=== PATIENT | male | born 1935 | race Caucasian/White ===

== ENCOUNTER 2019-03-30 16:15 | Observation (INO) ==
[2019-03-30] MEDS ORDERED: Ipratropium/Albuterol Neb 3 ML IH ONE (17:21)
[2019-03-30] MEDS ORDERED: predniSONE 20 MG TABLET PO ONE (17:21)
--- NOTE | 2019-03-30 17:25 | Emergency Department Note ---
Disposition Clinical Impression: COPD exacerbation Disposition: Admitted As Inpatient Condition: Good Referrals: Slade Pike DO [Primary Care Provider] - Forms: ED Satisfaction Letter Time of Disposition: 19:28 General Adult HPI - General Chief complaint: ED Shortness of Breath/Dyspnea Stated complaint: "Pneumonia" Time Seen by Provider: 03/30/19 16:23 Source: patient, family Mode of arrival: ambulatory Limitations: no limitations Nursing Notes Reviewed: Yes Vital Signs Reviewed: Yes - History of Present Illness HPI Narrative: 83-year-old male with significant past medical history of hypertension, diabetes and COPD not on any current oxygen presenting to the emergency department chief complaint of cough and increased sputum production. According to the patient for the past few weeks he has had increasing his cough but today he woke up and started having a yellowish sputum. He states he has some irritation in his th roat and this is exactly how it felt the last time he had pneumonia. Denies any fevers, chest pain or abdominal pain at home. Denies any known sick contacts. Patient tried his nebulizer this morning with some minimal relief. Pain Scale: 0 - Related Data Home Medications Medication Instructions Recorded Confirmed Finasteride [Proscar] 5 mg PO HS 06/27/16 10/11/18 Acetaminophen [Tylenol Arthritis] 650 mg PO BID PRN 04/16/18 10/11/18 Allopurinol [Zyloprim 100 MG] 100 mg PO QPM 04/16/18 10/11/18 Fluticasone Propionate Nasal 1 spr NS DAILY PRN 04/16/18 10/11/18 [Flonase] Metoprolol [Lopressor] 25 mg PO BID 04/16/18 10/11/18 Tamsulosin [Flomax] 0.4 mg PO DAILY 04/16/18 10/11/18 Amlodipine Besylate 10 mg PO DAILY 10/11/18 10/11/18 Sodium Bicarbonate 325 mg PO TID 10/11/18 10/11/18 Allergies Allergy/AdvReac Type Severity Reaction Status Date / Time No Known Allergies Allergy Verified 03/30/19 16:24 All systems ED: reviewed and negative except as stated. Constitutional: Denies: fever Eyes: Reports: as per HPI ENT ED: Reports: as per HPI Cardiovascular: Denies: chest pain Respiratory: Reports: cough, dyspnea Gastrointestinal: Denies: abdominal pain Genitourinary: Reports: as per HPI Musculoskeletal: Reports: as per HPI Integumentary: Reports: as per HPI Neurological: Reports: as per HPI Psychiatric: Reports: as per HPI Endocrine: Reports: as per HPI Hematological/Lymphatic: Reports: as per HPI Allergic/Immunologic: Reports: as per HPI Past Medical History - Past Medical History Attestation: Yes The following information was validated with the patient. Medical history: Reports: arthritis, cancer, COPD, diabetes, GERD, hyperlipidemia, hypertension, kidney stones, renal disease, other Surgical history: Reports: colectomy, other Psychiatric history: Reports: depression - Social History Smoking Status: Former smoker Smokeless Tobacco Status: No Alcohol use: Reports: none Drug use: Reports: none Physical Exam - General Limitations: no limitations General appearance: alert, in no apparent distress - Head Head exam: atraumatic, normocephalic, normal inspection - Eye Eye exam: Absent: scleral icterus - ENT ENT exam: mucous membranes moist - Neck Neck exam: Present: full ROM - Chest Chest inspection: Present: symmetric chest wall rise - Respiratory Respiratory exam: Present: other (Tight breath sounds throughout) - Cardiovascular Cardiovascular exam: Present: regular rate, normal rhythm, normal heart sounds - Abdominal Exam Abdominal exam: Present: soft, Non-Tender. Absent: distention, guarding, rebound - Extremities Exam Extremities exam: Present: full ROM - Neurological Exam Neurological exam: Present: alert, oriented X3 - Psychiatric Psychiatric exam: Present: normal affect, normal mood - Skin Skin exam: Present: warm Course Course Narrative: 83-year-old male presenting with cough and sputum production. In the room patient is alert and oriented 3 and hemodynamically stable. Patient has history of COPD and states this is how he felt the last time he had pneumonia. Physical exam is significant for tight aeration throughout but otherwise is benign. At this time will obtain basic laboratory analysis, two-view chest x- ray and provide him with breathing treatments and steroids. Disposition pending. Patient agrees with this plan. - Reevaluation(s) Reevaluation #1: Patient's laboratory analysis and x-ray benign. Patient ambulated and became hypoxic at 87% on room air. Due to this we will plan to admit the patient for COPD exacerbation. We will provide him with doxycycline. I spoke with the hospitalist on-call who agrees to accept the patient at this time. Patient remains alert and oriented 3 and hemodynamically stable. Vital Signs Temperature 98.2 F 03/30/19 16:20 Pulse Rate 76 03/30/19 16:20 Respiratory Rate 20 03/30/19 16:20 Blood Pressure 167/72 03/30/19 16:20 O2 Sat by Pulse Oximetry 94 03/30/19 16:20 Temperature 98.2 F 03/30/19 16:20 Pulse Rate 69 03/30/19 18:11 Respiratory Rate 16 03/30/19 18:11 Blood Pressure 149/76 03/30/19 18:11 O2 Sat by Pulse Oximetry 97 03/30/19 18:11 Oxygen Delivery Oxygen Delivery Room Air Medical Decision Making - Lab Data Result diagrams: 03/30/19 17:57 03/30/19 17:57 Lab Results 03/30/19 03/30/19 03/30/19 Range/Units 17:57 17:57 17:57 WBC 7.8 (4.3-11.1) K/mcL RBC 3.22 L (4.19-5.50) M/mcL Hgb 10.5 L (12.9-16.9) g/dL Hct 31.5 L (37.5-50.1) % MCV 97.8 (83.0-100.0) fL MCH 32.6 (28.0-33.3) pg MCHC 33.3 (31.6-35.5) g/dL RDW 13.5 (11.5-14.5) % Plt Count 127 L (140-400) K/mcL MPV 10.6 (9.4-12.4) fL Immature Gran % 0.5 (0-4) % Seg Neutrophils % 70.8 % Lymphocytes % 18.1 % Monocytes % 9.0 % Eosinophils % 1.3 % Basophils % 0.3 % Neutrophils # 5.5 (1.6-8.9) K/mcL Lymphocytes # 1.4 (0.6-4.6) K/mcL Monocytes # 0.7 (0.0-1.3) K/mcL Eosinophils # 0.1 (0.0-0.6) K/mcL Basophils # 0.0 (0.0-0.2) K/mcL Sodium 139 (136-145) mEq/L Potassium 4.3 (3.5-5.1) mEq/L Chloride 101 (98-107) mEq/L Carbon Dioxide 31 H (23-29) mEq/L BUN 35 H (8-23) mg/dL Creatinine 1.68 H (0.70-1.30) mg/dL Est GFR ( Amer) 47 L (> 60) Est GFR (Non-Af Amer) 39 L (> 60) BUN/Creatinine Ratio 21 (6-26) Glucose 117 H (70-105) mg/dL Calculated Osmolality 297 (280-300) Lactic Acid 1.0 (0.5-2.2) mmol/L Calcium 9.5 (8.6-10.3) mg/dL Troponin I 0.03 (< 0.04) ng/mL B-Natriuretic Peptide (Less than 100) pg/mL 03/30/19 Range/Units 17:57 WBC (4.3-11.1) K/mcL RBC (4.19-5.50) M/mcL Hgb (12.9-16.9) g/dL Hct (37.5-50.1) % MCV (83.0-100.0) fL MCH (28.0-33.3) pg MCHC (31.6-35.5) g/dL RDW (11.5-14.5) % Plt Count (140-400) K/mcL MPV (9.4-12.4) fL Immature Gran % (0-4) % Seg Neutrophils % % Lymphocytes % % Monocytes % % Eosinophils % % Basophils % % Neutrophils # (1.6-8.9) K/mcL Lymphocytes # (0.6-4.6) K/mcL Monocytes # (0.0-1.3) K/mcL Eosinophils # (0.0-0.6) K/mcL Basophils # (0.0-0.2) K/mcL Sodium (136-145) mEq/L Potassium (3.5-5.1) mEq/L Chloride (98-107) mEq/L Carbon Dioxide (23-29) mEq/L BUN (8-23) mg/dL Creatinine (0.70-1.30) mg/dL Est GFR ( Amer) (> 60) Est GFR (Non-Af Amer) (> 60) BUN/Creatinine Ratio (6-26) Glucose (70-105) mg/dL Calculated Osmolality (280-300) Lactic Acid (0.5-2.2) mmol/L Calcium (8.6-10.3) mg/dL Troponin I (< 0.04) ng/mL B-Natriuretic Peptide 118 H (Less than 100) pg/mL - EKG Data EKG #1 EKG attestation: Yes I reviewed and interpreted this EKG. EKG results narrative: Sinus rhythm. [address] interval 147, QRS 94, QTC 421. No sign of acute ST segment elevation or ischemia.
[2019-03-30 18:11] LABS: Basophils % 0.3 %; Eosinophils # 0.1 K/mcL (0.0-0.6); Eosinophils % 1.3 %; Hematocrit 31.5 % (37.5-50.1); Hemoglobin 10.5 g/dL (12.9-16.9); Immature Granulocytes % 0.5 % (0-4); Lymphocytes # 1.4 K/mcL (0.6-4.6); Lymphocytes % 18.1 %; Mean Corpuscular HGB Conc 33.3 g/dL (31.6-35.5); Mean Corpuscular Hemoglobin 32.6 pg (28.0-33.3); Mean Corpuscular Volume 97.8 fL (83.0-100.0); Mean Platelet Volume 10.6 fL (9.4-12.4); Monocytes # 0.7 K/mcL (0.0-1.3); Neutrophils # 5.5 K/mcL (1.6-8.9); Platelet Count 127 K/mcL (140-400); Red Blood Count 3.22 M/mcL (4.19-5.50); Red Cell Distribution Width 13.5 % (11.5-14.5); Segmented Neutrophils % 70.8 %
[2019-03-30 18:31] LABS: Calcium 9.5 mg/dL (8.6-10.3); Potassium 4.3 mEq/L (3.5-5.1)
[2019-03-30 18:33] LABS: Troponin I 0.03 ng/mL (< 0.04)
[2019-03-30] MEDS ORDERED: Doxycycline 100 MG in 0.9 % Sodium Chloride Mini Bag 100 ML IVPB ONE (19:21)
--- NOTE | 2019-03-30 19:31 | Emergency Department Note ---
Disposition Clinical Impression: COPD exacerbation, Acute exacerbation of chronic obstructive airways disease, Hypoxia Disposition: Admitted As Inpatient Condition: Good Referrals: Slade Pike DO [Primary Care Provider] - Forms: ED Satisfaction Letter Time of Disposition: 19:34 General Adult HPI - General Chief complaint: ED Shortness of Breath/Dyspnea Stated complaint: "Pneumonia" Time Seen by Provider: 03/30/19 16:23 Source: patient, family Mode of arrival: ambulatory Limitations: no limitations - History of Present Illness Pain Scale: 0 - Related Data Home Medications Medication Instructions Recorded Confirmed Finasteride [Proscar] 5 mg PO HS 06/27/16 10/11/18 Acetaminophen [Tylenol Arthritis] 650 mg PO BID PRN 04/16/18 10/11/18 Allopurinol [Zyloprim 100 MG] 100 mg PO QPM 04/16/18 10/11/18 Fluticasone Propionate Nasal 1 spr NS DAILY PRN 04/16/18 10/11/18 [Flonase] Metoprolol [Lopressor] 25 mg PO BID 04/16/18 10/11/18 Tamsulosin [Flomax] 0.4 mg PO DAILY 04/16/18 10/11/18 Amlodipine Besylate 10 mg PO DAILY 10/11/18 10/11/18 Sodium Bicarbonate 325 mg PO TID 10/11/18 10/11/18 Allergies Allergy/AdvReac Type Severity Reaction Status Date / Time No Known Allergies Allergy Verified 03/30/19 16:24 Constitutional: Denies: fever Eyes: Reports: as per HPI ENT ED: Reports: as per HPI Cardiovascular: Denies: chest pain Respiratory: Reports: cough, dyspnea Gastrointestinal: Denies: abdominal pain Genitourinary: Reports: as per HPI Musculoskeletal: Reports: as per HPI Integumentary: Reports: as per HPI Neurological: Reports: as per HPI Psychiatric: Reports: as per HPI Endocrine: Reports: as per HPI Hematological/Lymphatic: Reports: as per HPI Allergic/Immunologic: Reports: as per HPI Past Medical History - Past Medical History Medical history: Reports: arthritis, cancer, COPD, diabetes, GERD, hyperlipidemia, hypertension, kidney stones, renal disease, other Surgical history: Reports: colectomy, other Psychiatric history: Reports: depression - Social History Smoking Status: Former smoker Smokeless Tobacco Status: No Alcohol use: Reports: none Drug use: Reports: none Physical Exam - General Limitations: no limitations General appearance: alert, in no apparent distress Course Vital Signs Temperature 98.2 F 03/30/19 16:20 Pulse Rate 76 03/30/19 16:20 Respiratory Rate 20 03/30/19 16:20 Blood Pressure 167/72 03/30/19 16:20 O2 Sat by Pulse Oximetry 94 03/30/19 16:20 Temperature 98.2 F 03/30/19 16:20 Pulse Rate 69 03/30/19 18:11 Respiratory Rate 16 03/30/19 18:11 Blood Pressure 149/76 03/30/19 18:11 O2 Sat by Pulse Oximetry 97 03/30/19 18:11 Oxygen Delivery Oxygen Delivery Room Air Medical Decision Making - Lab Data Result diagrams: 03/30/19 17:57 03/30/19 17:57 Lab Results 03/30/19 03/30/19 03/30/19 Range/Units 17:57 17:57 17:57 WBC 7.8 (4.3-11.1) K/mcL RBC 3.22 L (4.19-5.50) M/mcL Hgb 10.5 L (12.9-16.9) g/dL Hct 31.5 L (37.5-50.1) % MCV 97.8 (83.0-100.0) fL MCH 32.6 (28.0-33.3) pg MCHC 33.3 (31.6-35.5) g/dL RDW 13.5 (11.5-14.5) % Plt Count 127 L (140-400) K/mcL MPV 10.6 (9.4-12.4) fL Immature Gran % 0.5 (0-4) % Seg Neutrophils % 70.8 % Lymphocytes % 18.1 % Monocytes % 9.0 % Eosinophils % 1.3 % Basophils % 0.3 % Neutrophils # 5.5 (1.6-8.9) K/mcL Lymphocytes # 1.4 (0.6-4.6) K/mcL Monocytes # 0.7 (0.0-1.3) K/mcL Eosinophils # 0.1 (0.0-0.6) K/mcL Basophils # 0.0 (0.0-0.2) K/mcL Sodium 139 (136-145) mEq/L Potassium 4.3 (3.5-5.1) mEq/L Chloride 101 (98-107) mEq/L Carbon Dioxide 31 H (23-29) mEq/L BUN 35 H (8-23) mg/dL Creatinine 1.68 H (0.70-1.30) mg/dL Est GFR ( Amer) 47 L (> 60) Est GFR (Non-Af Amer) 39 L (> 60) BUN/Creatinine Ratio 21 (6-26) Glucose 117 H (70-105) mg/dL Calculated Osmolality 297 (280-300) Lactic Acid 1.0 (0.5-2.2) mmol/L Calcium 9.5 (8.6-10.3) mg/dL Troponin I 0.03 (< 0.04) ng/mL B-Natriuretic Peptide (Less than 100) pg/mL 03/30/19 Range/Units 17:57 WBC (4.3-11.1) K/mcL RBC (4.19-5.50) M/mcL Hgb (12.9-16.9) g/dL Hct (37.5-50.1) % MCV (83.0-100.0) fL MCH (28.0-33.3) pg MCHC (31.6-35.5) g/dL RDW (11.5-14.5) % Plt Count (140-400) K/mcL MPV (9.4-12.4) fL Immature Gran % (0-4) % Seg Neutrophils % % Lymphocytes % % Monocytes % % Eosinophils % % Basophils % % Neutrophils # (1.6-8.9) K/mcL Lymphocytes # (0.6-4.6) K/mcL Monocytes # (0.0-1.3) K/mcL Eosinophils # (0.0-0.6) K/mcL Basophils # (0.0-0.2) K/mcL Sodium (136-145) mEq/L Potassium (3.5-5.1) mEq/L Chloride (98-107) mEq/L Carbon Dioxide (23-29) mEq/L BUN (8-23) mg/dL Creatinine (0.70-1.30) mg/dL Est GFR ( Amer) (> 60) Est GFR (Non-Af Amer) (> 60) BUN/Creatinine Ratio (6-26) Glucose (70-105) mg/dL Calculated Osmolality (280-300) Lactic Acid (0.5-2.2) mmol/L Calcium (8.6-10.3) mg/dL Troponin I (< 0.04) ng/mL B-Natriuretic Peptide 118 H (Less than 100) pg/mL Attestation Statement - Attestation Attestation: I examined this patient and my medical decision-making was reviewed with the Resident Physician. I agree with the documented findings, disposition and treatment plan as described except to the extent set forth below. 83 year old male presents to the ED with complaints of COPDE and increased requirments of oxygen in addition to increased sputum production. Patient will be admitted to medicine for COPDE
[2019-03-30] MEDS ORDERED: Acetaminophen 325 MG TABLET PO PRN (19:56)
[2019-03-30] MEDS ORDERED: Fluticasone Propionate Nasal 50 MCG/SPRAY BOTTLE NS PRN (19:56)
[2019-03-30] MEDS ORDERED: Dextrose Gel 15 GM/37.5 ML TUBE PO PRN ×2 (19:59)
[2019-03-30] MEDS ORDERED: *HR* Dextrose 50 % in Water (Syg) 50 ML SYRINGE IVP PRN (19:59)
--- NOTE | 2019-03-30 20:05 | Internal Med History&Physical ---
Date of Encounter: 03/30/19 Time of Encounter: 20:03 Internal Medicine - H&P: HPI Chief complaint: cough Admitted From: Home Plans for Post Hospital Care: Home History of present illness: Tarun Carroll is an 83-year-old man with COPD on 2 L home oxygen at bedtime, hypertension, chronic kidney disease and diabetes who presents emergency room complaining of increased cough and a change in his sputum co nsistency and color stating it is thicker and now more yellow. His is also accompanied by an increase in his baseline shortness of breath for which reason he decided to seek medical attention. He denied fever, chest pain, abdominal pain, nausea or vomiting. He used nebulizer therapy this morning with only minimal relief. In the ER he was given nebulizer therapy with improvement however upon ambulation he became hypoxic to 87% on room air which reason he is admitted for ongoing observation. Chest x-ray reviewed by me is unchanged from his baseline and shows no focal infiltrates concerning for pneumonia. Lab work was grossly unremarkable. Vitals: Reviewed General: Elderly white man sitting up in bed in no acute distress. Skin: Warm and dry. HEENT: Moist mucous membranes. No conjunctivae pallor. Neck: No lymphadenopathy. No JVD. No carotid bruits. No palpable thyroid. Chest: Normal thoracic expansion. Normal breath sounds. No wheezes, rales or rhonchi. Heart: Normal S1 & S2; rhythmic. No rubs or murmurs. Abdomen: Non-distended, soft and non-tender to palpation. No peritoneal r eaction. Extremities: No clubbing, cyanosis or edema. No calf tenderness. Normal distal pulses. Neurological: Awake, alert and oriented to person, place and time. No focal deficits. Psych: Affect appropriate. Assessment/Plan 1. Acute on chronic hypoxic respiratory failure secondary to mild COPD exacerbation: Will provide oxygen as needed to maintain saturation above 92%, nebulizer therapy overnight and continue empiric doxycycline 100mg BID. 2. HTN: Continue amlodipine 10mg daily. 3. Diabetes: Will place on insulin sliding scale. 4. CKD: Stable. 5. BPH: On tamsulosin and finasteride. Past Med Surg Social Fam HX - Past Medical History Medical history: arthritis, cancer, COPD, diabetes, GERD, hyperlipidemia, hypertension, kidney stones, renal disease, other Additional medical history: colon cancer Psychiatric history: depression - Past Surgical History Surgical History: colectomy, other Additional surgical history: colon cancer mass removed 2003. prostate sx 2012. renal stones removed 2015. colonoscopy x2 - Social History Smoking Status: Former smoker Smokeless Tobacco Status: No Alcohol use: none Drug use: none - Family History Father Adopted: No Living Status: Hx Family Neurologic Disorders: Yes Internal Medicine - H&P: Meds Finasteride [Proscar] 5 mg PO HS 06/27/16 [History] Acetaminophen [Tylenol Arthritis] 650 mg PO BID PRN 04/16/18 [History] Allopurinol [Zyloprim 100 MG] 100 mg PO QPM 04/16/18 [History] Fluticasone Propionate Nasal [Flonase] 1 spr NS DAILY PRN 04/16/18 [History] Metoprolol [Lopressor] 25 mg PO BID 04/16/18 [History] Tamsulosin [Flomax] 0.4 mg PO DAILY 04/16/18 [History] Amlodipine Besylate 10 mg PO DAILY 10/11/18 [History] Sodium Bicarbonate 325 mg PO TID 10/11/18 [History] Allergy/AdvReac Type Severity Reaction Status Date / Time No Known Allergies Allergy Verified 03/30/19 16:24 All Systems PM: A 10-system review of systems was performed and is negative for pertinent findings except as documented above in the HPI. - Constitutional Vitals: Temp Pulse Resp BP Pulse Ox 98.2 F 69 16 149/76 97 03/30/19 16:20 03/30/19 18:11 03/30/19 18:11 03/30/19 18:11 03/30/19 18:11 Exam: . Internal Med - H&P Results - Labs CBC & Chem 7: 03/30/19 17:57 03/30/19 17:57 Labs: Short CBC 03/30/19 Range/Units 17:57 WBC 7.8 (4.3-11.1) K/mcL Hgb 10.5 L (12.9-16.9) g/dL Hct 31.5 L (37.5-50.1) % Plt Count 127 L (140-400) K/mcL Neutrophils # 5.5 (1.6-8.9) K/mcL BMP 03/30/19 17:57 Sodium 139 Potassium 4.3 Chloride 101 Carbon Dioxide 31 H BUN 35 H Creatinine 1.68 H Glucose 117 H Calcium 9.5 Cardiac Enzymes 03/30/19 Range/Units 17:57 Troponin I 0.03 (< 0.04) ng/mL - Impressions ITS Impressions Chest X-Ray 03/30/19 17:22 IMPRESSION: No acute process. D/ / Hugo Nunez MD / Hugo Nunez MD Interpreting Provider: Hugo Nunez MD - Time Spent With Patient Total time spent is greater than 50% in coordination of care (as documented) at patient's floor/unit and/or counseling patient: Greater than 35 minutes
[2019-03-30] MEDS ORDERED: Finasteride 5 MG TABLET PO SCH (21:00)
[2019-03-30] MEDS ORDERED: Insulin LISPRO 300 UNITS/3 ML VIAL SQ SCH (21:00)
[2019-03-30] MEDS: Ipratropium/Albuterol Neb 3 ML IH SCH (21:18)
[2019-03-30] MEDS ORDERED: amLODIPine 5 MG TABLET PO SCH (23:00)
[2019-03-30] MEDS: *HR* Heparin 5,000 UNIT/ML VIAL SQ SCH (23:08)
[2019-03-31] MEDS: Ipratropium/Albuterol Neb 3 ML IH SCH ×2 (00:06→04:31)
[2019-03-31] MEDS: *HR* Heparin 5,000 UNIT/ML VIAL SQ SCH (05:47)
[2019-03-31 08:06] VITALS: BP 123/51
[2019-03-31] MEDS: Insulin LISPRO 300 UNITS/3 ML VIAL SQ SCH ×2 (08:32→12:27)
[2019-03-31] MEDS ORDERED: predniSONE 20 MG TABLET PO SCH (09:00)
[2019-03-31] MEDS ORDERED: Doxycycline 100 MG CAPSULE PO SCH (09:00)
[2019-03-31] MEDS ORDERED: amLODIPine 5 MG TABLET PO SCH (09:00)
--- NOTE | 2019-03-31 09:45 | Discharge Summary ---
- NOTES TO OUTPATIENT PROVIDER Notes to Outpatient Provider: Follow with PCP in one week. Orders not resulted at time of discharge: Pending orders 03/30/19 17:21 ECG 12 lead ECG [ECG] Stat Date of Encounter: 03/31/19 Time of Encounter: 09:41 - Discharge Diagnosis (1) Acute bronchitis Priority: Primary Status: Acute Qualifiers: Bronchitis organism: unspecified organism Qualified Code(s): J20.9 - Acute bronchitis, unspecified (2) Acute exacerbation of chronic obstructive airways disease Priority: Primary Status: Acute (3) Chronic respiratory failure with hypoxia Priority: Secondary Status: Acute (4) CKD (chronic kidney disease) stage 3, GFR 30-59 ml/min Priority: Secondary Status: Chronic (5) Diabetes Priority: Secondary Status: Chronic Qualifiers: Diabetes mellitus type: type 2 Diabetes mellitus shelter insulin use: without shelter use Diabetes mellitus complication status: with kidney complications Diabetes mellitus complication detail: with chronic kidney disease Chronic kidney disease stage: stage 3 (moderate) Qualified Code(s): E11.22 - Type 2 diabetes mellitus with diabetic chronic kidney disease; N18.3 - Chronic kidney disease, stage 3 (moderate) (6) Hypertension Priority: Secondary Status: Chronic Qualifiers: Hypertension type: essential hypertension Qualified Code(s): I10 - Essential (primary) hypertension Hospital course: Mr. Carroll is a 83 year old male with known PMH of COPD on 2 L home oxygen at bedtime, hypertension, chronic kidney disease - stage 3 and diabetes who pre sented to ER with complaining of increased cough and a change in his sputum consistency and color stating it is thicker and now more yellow. His is also accompanied by an increase in his baseline shortness of breath for which reason he decided to seek medical attention. In the ER he was given nebulizer therapy with improvement however upon ambulation he became hypoxic to 87% on room air which reason he is admitted for ongoing observation. CXR did not show any consolidation/infiltrates. He was admitted in the hospital and placed him on systemic steroids and empirical antibiotic Doxyxycline. He was continued on frequent bronchodilators therapy. Patient stated he is feeling better now. Breathing comfortably on room air. Would like to go home today. Will discharge him home in a stable co ndition today with oral antibiotic and tapering dose of steroids. Also placed him on Symbicort for his COPD. - Time Spent with Patient Total time spent providing and/or coordinating discharge services: - Discharge Medications Prescriptions: New Albuterol Sulfate [Albuterol Inhaler] 2 puff IH Q6HR PRN #1 hfa.aer.[email or web address] PRN Reason: Shortness Of Breath Doxycycline 100 mg PO BID #8 capsule predniSONE [PredniSONE] 40 mg PO DAILY #10 tablet Budesonide/Formoterol 160/4.5 [Symbicort 160/4.5] 2 puff IH BIDR #1 hfa.aer.ad Continued Finasteride [Proscar] 5 mg PO HS Acetaminophen [Tylenol Arthritis] 650 mg PO BID PRN PRN Reason: ARTHRITIS Allopurinol [Zyloprim 100 MG] 100 mg PO DAILY Tamsulosin [Flomax] 0.4 mg PO DAILY Metoprolol [Lopressor] 25 mg PO DAILY Sodium Bicarbonate 325 mg PO TID Amlodipine Besylate 10 mg PO HS Losartan [Cozaar] 25 mg PO DAILY Furosemide [Lasix] 20 mg PO DAILY Pioglitazone [Actos] 30 mg PO DAILY Home Medications: Finasteride [Proscar] 5 mg PO HS 06/27/16 [History] Acetaminophen [Tylenol Arthritis] 650 mg PO BID PRN 04/16/18 [History] Allopurinol [Zyloprim 100 MG] 100 mg PO DAILY 04/16/18 [History] Metoprolol [Lopressor] 25 mg PO DAILY 04/16/18 [History] Tamsulosin [Flomax] 0.4 mg PO DAILY 04/16/18 [History] Amlodipine Besylate 10 mg PO HS 10/11/18 [History] Sodium Bicarbonate 325 mg PO TID 10/11/18 [History] Furosemide [Lasix] 20 mg PO DAILY 03/30/19 [History] Losartan [Cozaar] 25 mg PO DAILY 03/30/19 [History] Pioglitazone [Actos] 30 mg PO DAILY 03/30/19 [History] Albuterol Sulfate [Albuterol Inhaler] 2 puff IH Q6HR PRN #1 hfa.aer.ad 03/31/19 [Rx] Budesonide/Formoterol 160/4.5 [Symbicort 160/4.5] 2 puff IH BIDR #1 hfa.aer.ad 03/31/19 [Rx] Doxycycline 100 mg PO BID #8 capsule 03/31/19 [Rx] predniSONE [PredniSONE] 40 mg PO DAILY #10 tablet 03/31/19 [Rx] Allergies/Adverse Reactions: Allergy/AdvReac Type Severity Reaction Status Date / Time No Known Allergies Allergy Verified 03/30/19 16:24 Date of admission: 03/30/19 19:58 Primary care physician: Slade Pike - Constitutional Vitals: Temp Pulse Resp BP Pulse Ox 98.0 F 81 17 123/51 97 03/31/19 07:59 03/31/19 07:59 03/31/19 07:59 03/31/19 07:59 03/31/19 07:59 General appearance: Present: A&O X 3, no acute distress, answers questions appropriately Exam: Gen: Alert, awake, Oriented to time,place and person Chest: Diminished breath sounds B/L, Mild wheezing, No crackles, No rales Heart: S1S2+ RRR No murmurs Abd: Soft, NT, BS +, No organomegaly Ext: No edema, pulses are palpable, No calf tenderness Neuro : no focal neuro deficits Skin: No rash. - Patient Status Disposition: Home, Self-Care Condition: Good Overall status at discharge: patient is back to baseline - Discharge Instructions Follow Up With: Slade Pike DO [Primary Care Provider] - - Diet and Activity Activity: increase activity as tolerated, wear oxygen at night Diet: low salt diet
--- NOTE | 2019-04-01 22:53 | Electrocardiograph Report ---
[place] [id number] Test Date: 2019-03-30 Pat Name: Tarun Carroll Department: [id number] Room: 3B12 Gender: M [employer]: : 1935 Requested By: Ly Victoria Order Number: [id number] Reading MD: Diane Colon Measurements Intervals [place] Rate: 66 P: 39 AL: 147 QRS: 3 QRSD: 94 T: 130 QT: 401 QTc: 421 Interpretive Statements Sinus rhythm Nonspecific ST-T wave changes, consider ischemia Electronically Signed On 04-01-2019 22:51:01 EDT by Diane Colon
== END 2019-03-31 13:59 | disposition home or self-care (01) ==
LOC: EMEROOARM 16:15 → 3BNU 16:15 → SUATTDRO 19:58 → 3BNU 20:43
PROVIDERS: ADMIT Internal Medicine; ATTEND Family Medicine

== ENCOUNTER 2020-08-31 17:40 | Observation (INO) ==
[2020-08-31 18:11] LABS: Basophils % 0.5 %; Eosinophils # 0.1 K/mcL (0.0-0.6); Eosinophils % 1.7 %; Hematocrit 32.5 % (37.5-50.1); Hemoglobin 10.4 g/dL (12.9-16.9); Immature Granulocytes % 0.5 % (0-4); Lymphocytes # 1.9 K/mcL (0.6-4.6); Lymphocytes % 31.6 %; Mean Corpuscular Hemoglobin 32.2 pg (28.0-33.3); Mean Corpuscular Volume 100.6 fL (83.0-100.0); Mean Platelet Volume 10.4 fL (9.4-12.4); Monocytes # 0.4 K/mcL (0.0-1.3); Monocytes % 7.1 %; Neutrophils # 3.4 K/mcL (1.6-8.9); Platelet Count 158 K/mcL (140-400); Red Blood Count 3.23 M/mcL (4.19-5.50); Red Cell Distribution Width 12.8 % (11.5-14.5); Segmented Neutrophils % 58.6 %; White Blood Count 5.9 K/mcL (4.3-11.1)
[2020-08-31 18:23] LABS: Activated Partial Thrombo Time 28.6 Seconds (26.0-36.0)
[2020-08-31 18:32] LABS: BUN/Creatinine Ratio 22 (6-26); Blood Urea Nitrogen 34 mg/dL (8-23); Calcium 9.2 mg/dL (8.6-10.3); Carbon Dioxide 31 mEq/L (23-29); Chloride 100 mEq/L (98-107); Glucose 129 mg/dL (70-105); Osmolality,Calculated 297 (280-300); Potassium 4.3 mEq/L (3.5-5.1); Sodium 139 mEq/L (136-145); Troponin I < 0.03 ng/mL (< 0.04); eGFR For African Americans 52 (> 60); eGFR For Non-African Americans 43 (> 60)
[2020-08-31] MEDS ORDERED: Ondansetron ODT 4 MG TAB.RAPDIS SL PRN (21:13)
[2020-08-31] MEDS ORDERED: Naloxone 0.4 MG/ML INJ IVP PRN (21:13)
[2020-08-31] MEDS ORDERED: Perflutren Lipid Microsphere 1.3 ML in 0.9 % Sodium Chloride 8.7 ML IVP PRN (21:16)
[2020-08-31] MEDS ORDERED: *HR* Enoxaparin 30 MG/0.3 ML SYRINGE SQ SCH (21:19)
[2020-08-31] MEDS ORDERED: Furosemide 20 MG/2 ML VIAL IVP ONE (22:28)
[2020-08-31] MEDS: Budesonide/Formoterol 160/4.5 1 PUFF INH IH SCH (22:28)
[2020-08-31] MEDS ORDERED: *HR* Heparin 5,000 UNIT/ML VIAL IVP PRN ×2 (22:29)
[2020-08-31] MEDS ORDERED: *HR* Heparin 5,000 UNIT/ML VIAL IVP ONE (22:29)
[2020-08-31] MEDS ORDERED: Heparin 25,000UNIT/250ML 1/2NS 25,000 UNIT/250 ML IV.SOLN IVC SCH (22:30)
[2020-08-31] MEDS ORDERED: Dextrose Gel 15 GM/37.5 ML TUBE PO PRN ×2 (22:39)
[2020-08-31] MEDS ORDERED: *HR* Dextrose 50 % in Water (Vial) 50 ML VIAL IVP PRN (22:39)
[2020-08-31] MEDS ORDERED: D5% in Water 1,000 ML IVC PRN (22:39)
[2020-08-31] MEDS: Insulin LISPRO 300 UNITS/3 ML VIAL SQ SCH (23:11)
[2020-08-31] MEDS: Acetaminophen 325 MG TABLET PO PRN (23:29)
[2020-09-01 00:32] LABS: Bilirubin,Urine Negative (Negative); Blood,Urine Negative (Negative); Clarity,Urine Clear (Clear); Color,Urine Colorless (Yellow); Glucose,Urine (UA) Normal (Normal); Ketones,Urine Negative (Negative); Leukocyte Esterase,Urine Negative (Negative); Nitrite,Urine Negative (Negative); Protein,Urine Trace mg/dL (Neg-Trace); Urobilinogen,Urine Normal (Normal)
[2020-09-01 00:40] LABS: Heparin anti-factor XA UFH < 0.04 IU/mL (0.30-0.70); Prothrombin Time 11.1 Seconds (9.4-12.1)
[2020-09-01 00:49] LABS: Basophils % 0.7 %; Eosinophils # 0.2 K/mcL (0.0-0.6); Eosinophils % 3.3 %; Hematocrit 31.6 % (37.5-50.1); Hemoglobin 10.1 g/dL (12.9-16.9); Immature Granulocytes % 0.5 % (0-4); Lymphocytes # 1.7 K/mcL (0.6-4.6); Mean Corpuscular Hemoglobin 31.6 pg (28.0-33.3); Mean Corpuscular Volume 98.8 fL (83.0-100.0); Mean Platelet Volume 10.9 fL (9.4-12.4); Monocytes # 0.3 K/mcL (0.0-1.3); Monocytes % 6.2 %; Neutrophils # 3.2 K/mcL (1.6-8.9); Platelet Count 168 K/mcL (140-400); Red Cell Distribution Width 12.8 % (11.5-14.5); Segmented Neutrophils % 58.3 %; White Blood Count 5.5 K/mcL (4.3-11.1)
[2020-09-01 01:51] LABS: Estimated Average Glucose 134 mg/dl
[2020-09-01 02:21] LABS: Hematocrit 29.2 % (37.5-50.1); Hemoglobin 9.3 g/dL (12.9-16.9); Mean Corpuscular HGB Conc 31.8 g/dL (31.6-35.5); Mean Corpuscular Hemoglobin 31.8 pg (28.0-33.3); Platelet Count 165 K/mcL (140-400); Red Blood Count 2.92 M/mcL (4.19-5.50); Red Cell Distribution Width 12.9 % (11.5-14.5); White Blood Count 6.1 K/mcL (4.3-11.1)
[2020-09-01 02:42] LABS: Albumin 3.6 g/dL (3.5-5.7); Albumin/Globulin Ratio 1.5 (1.1-2.2); Bilirubin,Total 0.4 mg/dL (0.3-1.0); Calcium 9.2 mg/dL (8.6-10.3); Globulin 2.4 g/dL (2.4-3.5); Magnesium 1.8 mg/dL (1.6-2.6); Phosphorous 2.8 mg/dL (2.7-4.5); Potassium 3.7 mEq/L (3.5-5.1)
[2020-09-01 02:54] LABS: Thyroid Stimulating Hormone 2.608 mcIU/mL (0.340-5.600)
[2020-09-01] MEDS: Insulin LISPRO 300 UNITS/3 ML VIAL SQ SCH ×3 (07:26→16:32)
[2020-09-01] MEDS: Budesonide/Formoterol 160/4.5 1 PUFF INH IH SCH ×2 (07:41→20:27)
[2020-09-01] MEDS: allopurinoL 100 MG TABLET PO SCH (08:04)
[2020-09-01] MEDS ORDERED: Furosemide 20 MG TABLET PO SCH (09:00)
[2020-09-01] MEDS: Aspirin 81 MG TAB.CHEW PO SCH (14:42)
[2020-09-01] MEDS: *HR* Heparin 5,000 UNIT/ML VIAL SQ SCH (16:33)
[2020-09-01] MEDS ORDERED: Insulin LISPRO 300 UNITS/3 ML VIAL SQ SCH (21:00)
[2020-09-01] MEDS ORDERED: amLODIPine 5 MG TABLET PO SCH ×2 (21:00)
[2020-09-01] MEDS ORDERED: Finasteride 5 MG TABLET PO SCH (21:00)
[2020-09-01] MEDS: Acetaminophen 325 MG TABLET PO PRN (21:03)
[2020-09-02 02:09] LABS: Basophils % 0.6 %; Eosinophils # 0.2 K/mcL (0.0-0.6); Eosinophils % 3.5 %; Hematocrit 30.3 % (37.5-50.1); Hemoglobin 9.5 g/dL (12.9-16.9); Immature Granulocytes % 0.6 % (0-4); Lymphocytes # 1.8 K/mcL (0.6-4.6); Lymphocytes % 32.3 %; Mean Corpuscular HGB Conc 31.4 g/dL (31.6-35.5); Mean Platelet Volume 10.8 fL (9.4-12.4); Monocytes # 0.5 K/mcL (0.0-1.3); Neutrophils # 2.9 K/mcL (1.6-8.9); Platelet Count 173 K/mcL (140-400); Red Blood Count 2.97 M/mcL (4.19-5.50); Red Cell Distribution Width 12.7 % (11.5-14.5); White Blood Count 5.4 K/mcL (4.3-11.1)
[2020-09-02 02:13] LABS: Calcium 8.9 mg/dL (8.6-10.3); Magnesium 1.9 mg/dL (1.6-2.6); Phosphorous 4.1 mg/dL (2.7-4.5); Potassium 4.4 mEq/L (3.5-5.1)
[2020-09-02 02:15] LABS: Chol/HDL Ratio 4.1 (0-4.9)
[2020-09-02] MEDS: *HR* Heparin 5,000 UNIT/ML VIAL SQ SCH (06:02)
[2020-09-02] MEDS: Budesonide/Formoterol 160/4.5 1 PUFF INH IH SCH (07:26)
[2020-09-02] MEDS: Insulin LISPRO 300 UNITS/3 ML VIAL SQ SCH ×3 (07:33→17:25)
[2020-09-02] MEDS: allopurinoL 100 MG TABLET PO SCH (08:28)
[2020-09-02] MEDS: Aspirin 81 MG TAB.CHEW PO SCH (08:28)
[2020-09-02] MEDS ORDERED: Cyanocobalamin (B-12) 1,000 MCG TABLET PO SCH (09:00)
[2020-09-02] MEDS ORDERED: Tiotropium 18 MCG inhalation IH SCH (10:00)
[2020-09-02 14:31] VITALS: BP 161/74
== END 2020-09-02 18:15 | disposition home health service (06) ==
LOC: EMEROOARM 17:40 → 3BNU 17:40 → SUATTDRO 20:15 → 3BNU 20:49
PROVIDERS: ADMIT Internal Medicine; ATTEND Internal Medicine

== ENCOUNTER 2021-02-09 15:08 | Inpatient (IN) ==
[2021-02-09 15:52] LABS: Basophils % 0.4 %; Eosinophils % 0.2 %; Hematocrit 32.9 % (37.5-50.1); Hemoglobin 10.1 g/dL (12.9-16.9); Lymphocytes # 0.9 K/mcL (0.6-4.6); Lymphocytes % 18.2 %; Mean Corpuscular HGB Conc 30.7 g/dL (31.6-35.5); Mean Corpuscular Hemoglobin 32.1 pg (28.0-33.3); Mean Corpuscular Volume 104.4 fL (83.0-100.0); Mean Platelet Volume 11.3 fL (9.4-12.4); Monocytes # 0.2 K/mcL (0.0-1.3); Monocytes % 4.1 %; Neutrophils # 3.9 K/mcL (1.6-8.9); Platelet Count 149 K/mcL (140-400); Red Blood Count 3.15 M/mcL (4.19-5.50); Red Cell Distribution Width 13.2 % (11.5-14.5); Segmented Neutrophils % 76.1 %; White Blood Count 5.2 K/mcL (4.3-11.1)
[2021-02-09] MEDS ORDERED: Furosemide 40 MG/4 ML VIAL IVP ONE (15:52)
[2021-02-09 15:59] LABS: Prothrombin Time 11.6 Seconds (9.4-12.1)
[2021-02-09 16:19] LABS: BUN/Creatinine Ratio 25 (6-26); Blood Urea Nitrogen 33 mg/dL (8-23); Calcium 9.3 mg/dL (8.6-10.3); Carbon Dioxide 40 mEq/L (23-29); Chloride 97 mEq/L (98-107); Glucose 231 mg/dL (70-105); Osmolality,Calculated 307 (280-300); Potassium 4.1 mEq/L (3.5-5.1); Sodium 141 mEq/L (136-145); Troponin I 0.03 ng/mL (< 0.04); eGFR For African Americans > 60 (> 60); eGFR For Non-African Americans 51 (> 60)
[2021-02-09] MEDS ORDERED: Ondansetron 4 MG/2 ML VIAL IVP PRN (16:47)
[2021-02-09] MEDS ORDERED: Acetaminophen 325 MG TABLET PO PRN (16:47)
[2021-02-09] MEDS ORDERED: Melatonin 3 MG TABLET PO PRN (16:47)
[2021-02-09] MEDS ORDERED: methylPREDNISolone 125 MG/2 ML VIAL IVP ONE (16:54)
[2021-02-09] MEDS ORDERED: D5% in Water 1,000 ML IVC PRN (16:55)
[2021-02-09] MEDS ORDERED: Dextrose Gel 15 GM/37.5 ML TUBE PO PRN ×2 (16:55)
[2021-02-09] MEDS ORDERED: *HR* Dextrose 50 % in Water (Vial) 50 ML VIAL IVP PRN (16:55)
[2021-02-09 17:17] LABS: VBG HCO3 39 mEq/L (21-27); VBG PCO2 73 mmHg (41-51); VBG PH 7.34 pH Units (7.32-7.42); VBG PO2 85 mmHg (25-50)
[2021-02-09] MEDS ORDERED: Perflutren Lipid Microsphere 1.3 ML in 0.9 % Sodium Chloride 8.7 ML IVP PRN (18:10)
[2021-02-09] MEDS: Ipratropium/Albuterol Neb 3 ML IH SCH ×2 (18:17→19:38)
[2021-02-09 18:58] LABS: Lactate Dehydrogenase 190 Units/L (140-271)
[2021-02-09 19:51] LABS: Appearance of Pleural Fl Hazy (Clear); RBC,Pleural Fluid 13000 RBC/mcL
[2021-02-09 20:01] LABS: Total Protein,Pleural Fluid 3.5 g/dL
[2021-02-09] MEDS ORDERED: Insulin DETEMIR 100 UNIT/ML X5UNITS SUBQ SCH (21:00)
[2021-02-09] MEDS: Insulin LISPRO 300 UNITS/3 ML VIAL SUBQ SCH (21:15)
[2021-02-09 21:24] LABS: Basophils,Pleural Fluid 0 %; Eosinophils,Pleural Fluid 0 %
[2021-02-10] MEDS: Ipratropium/Albuterol Neb 3 ML IH SCH ×7 (00:30→23:27)
[2021-02-10 03:53] LABS: Calcium 8.9 mg/dL (8.6-10.3); Magnesium 1.7 mg/dL (1.6-2.6); Potassium 3.8 mEq/L (3.5-5.1)
[2021-02-10] MEDS ORDERED: *HR* Heparin 5,000 UNIT/ML VIAL SQ SCH (06:00)
[2021-02-10] MEDS: predniSONE 20 MG TABLET PO SCH (07:48)
[2021-02-10] MEDS: Insulin LISPRO 300 UNITS/3 ML VIAL SUBQ SCH ×4 (07:48→21:35)
[2021-02-10] MEDS ORDERED: Furosemide 40 MG/4 ML VIAL IVP SCH (09:00)
[2021-02-10] MEDS ORDERED: Furosemide 20 MG/2 ML VIAL IVP SCH (09:00)
[2021-02-10] MEDS ORDERED: Insulin DETEMIR 100 UNIT/ML X5UNITS SUBQ SCH (09:00)
[2021-02-10] MEDS ORDERED: Insulin LISPRO 300 UNITS/3 ML VIAL SUBQ ONE (20:34)
[2021-02-10] MEDS: Insulin DETEMIR 100 UNIT/ML X5UNITS SUBQ SCH (21:34)
[2021-02-11] MEDS: Ipratropium/Albuterol Neb 3 ML IH SCH ×6 (03:55→23:48)
[2021-02-11] MEDS: Insulin LISPRO 300 UNITS/3 ML VIAL SUBQ SCH ×4 (08:07→19:41)
[2021-02-11 08:10] LABS: Calcium 9.1 mg/dL (8.6-10.3); Potassium 3.6 mEq/L (3.5-5.1)
[2021-02-11] MEDS: predniSONE 20 MG TABLET PO SCH (08:14)
[2021-02-11] MEDS: Insulin DETEMIR 100 UNIT/ML X5UNITS SUBQ SCH ×2 (08:14→19:41)
[2021-02-11] MEDS: Furosemide 20 MG/2 ML VIAL IVP SCH ×2 (11:38→19:41)
[2021-02-11] MEDS: Sennosides/Docusate Sodium TABLET PO PRN (16:45)
[2021-02-11] MEDS: amLODIPine 5 MG TABLET PO SCH (19:41)
[2021-02-11] MEDS: Finasteride 5 MG TABLET PO SCH (19:41)
[2021-02-12 01:11] LABS: Hematocrit 30.6 % (37.5-50.1); Hemoglobin 9.4 g/dL (12.9-16.9); Mean Corpuscular HGB Conc 30.7 g/dL (31.6-35.5); Mean Corpuscular Hemoglobin 32.1 pg (28.0-33.3); Mean Corpuscular Volume 104.4 fL (83.0-100.0); Mean Platelet Volume 11.4 fL (9.4-12.4); Platelet Count 148 K/mcL (140-400); Red Blood Count 2.93 M/mcL (4.19-5.50); Red Cell Distribution Width 13.5 % (11.5-14.5); White Blood Count 6.7 K/mcL (4.3-11.1)
[2021-02-12 01:29] LABS: Calcium 9.4 mg/dL (8.6-10.3); Magnesium 1.9 mg/dL (1.6-2.6); Potassium 3.8 mEq/L (3.5-5.1)
[2021-02-12] MEDS: Ipratropium/Albuterol Neb 3 ML IH SCH ×6 (03:40→22:11)
[2021-02-12] MEDS: allopurinoL 100 MG TABLET PO SCH (09:48)
[2021-02-12] MEDS: predniSONE 20 MG TABLET PO SCH (09:48)
[2021-02-12] MEDS: Sennosides/Docusate Sodium TABLET PO PRN (09:48)
[2021-02-12] MEDS: Metoprolol XL (24 HR) Succ 25 MG TAB.ER.24H PO SCH (09:48)
[2021-02-12] MEDS: Aspirin 81 MG TAB.CHEW PO SCH (09:48)
[2021-02-12] MEDS: Furosemide 20 MG/2 ML VIAL IVP SCH ×2 (09:48→21:01)
[2021-02-12] MEDS: Insulin LISPRO 300 UNITS/3 ML VIAL SUBQ SCH ×4 (09:49→21:02)
[2021-02-12] MEDS: Insulin DETEMIR 100 UNIT/ML X5UNITS SUBQ SCH ×2 (09:49→21:02)
[2021-02-12] MEDS: Finasteride 5 MG TABLET PO SCH (21:02)
[2021-02-12] MEDS: amLODIPine 5 MG TABLET PO SCH (21:02)
[2021-02-13] MEDS: Ipratropium/Albuterol Neb 3 ML IH SCH ×6 (03:47→23:49)
[2021-02-13] MEDS: Aspirin 81 MG TAB.CHEW PO SCH (07:38)
[2021-02-13] MEDS: allopurinoL 100 MG TABLET PO SCH (07:38)
[2021-02-13] MEDS: Metoprolol XL (24 HR) Succ 25 MG TAB.ER.24H PO SCH (07:38)
[2021-02-13] MEDS: predniSONE 20 MG TABLET PO SCH (07:38)
[2021-02-13] MEDS: Insulin LISPRO 300 UNITS/3 ML VIAL SUBQ SCH ×4 (07:39→20:26)
[2021-02-13] MEDS: Insulin DETEMIR 100 UNIT/ML X5UNITS SUBQ SCH ×2 (07:39→20:26)
[2021-02-13] MEDS: Furosemide 20 MG/2 ML VIAL IVP SCH (07:39)
[2021-02-13 12:22] LABS: Calcium 9.2 mg/dL (8.6-10.3); Magnesium 1.9 mg/dL (1.6-2.6)
[2021-02-13] MEDS: amLODIPine 5 MG TABLET PO SCH (20:24)
[2021-02-13] MEDS: Finasteride 5 MG TABLET PO SCH (20:24)
[2021-02-14] MEDS: Ipratropium/Albuterol Neb 3 ML IH SCH ×4 (03:26→15:38)
[2021-02-14 05:44] LABS: Magnesium 2.1 mg/dL (1.6-2.6)
[2021-02-14] MEDS ORDERED: Furosemide 20 MG/2 ML VIAL IVP ONE (07:14)
[2021-02-14] MEDS: Insulin LISPRO 300 UNITS/3 ML VIAL SUBQ SCH ×3 (09:16→16:21)
[2021-02-14] MEDS: Aspirin 81 MG TAB.CHEW PO SCH (09:25)
[2021-02-14] MEDS: Metoprolol XL (24 HR) Succ 25 MG TAB.ER.24H PO SCH (09:25)
[2021-02-14] MEDS: allopurinoL 100 MG TABLET PO SCH (09:25)
[2021-02-14] MEDS: Insulin DETEMIR 100 UNIT/ML X5UNITS SUBQ SCH (09:25)
[2021-02-14 11:25] VITALS: BP 125/70
== END 2021-02-14 17:30 | disposition home health service (06) | DRG 291 ==
LOC: 2ANU 15:08 → EMEROOARM 15:08 → SUATTDRO 16:52 → 2ANU 17:59
PROVIDERS: ADMIT Internal Medicine; ATTEND Internal Medicine